=== PATIENT | male | born 1980 | race Two or more races ===

== ENCOUNTER 2016-10-19 21:23 | Emergency (ER) | payer MEDICAID, OTHER ==
[2016-10-20] MEDS ORDERED: KETOROLAC TROMETHAMINE 30 MG/ML 1 ML VIAL ONE (00:07)
[2016-10-20] MEDS ORDERED: ONDANSETRON 4 MG/2ML 2 ML VIAL ONE (00:07)
[2016-10-20 00:21] LABS: BASO % 0.4 % (0.2-1.0); EOS # 0.3 (0.0-0.5); EOS % 4.4 % (0.9-2.9); HEMATOCRIT 45.6 % (32.0-52.0); HEMOGLOBIN 15.7 gm/l (14.0-18.0); IMM NEUT% 0.3 % (0-1); LYMPH # 0.8 (1.0-4.8); LYMPH % 10.2 % (15-45); MEAN CELL VOLUME 86.4 fl (80.0-94.0); MEAN CORPUSCULAR HEMOGLOBIN 29.7 pg (27.0-31.0); MEAN CORPUSCULAR HGB CONC 34.4 g/dl (33.0-37.0); MEAN PLATELET VOLUME 9.1 fl (7.4-10.4); MONO # 0.6 (0.0-0.8); MONO % 7.3 % (4-12); NEUT % 77.4 % (43-75); PLATELET COUNT 257 K/mm3 (130-400); RED CELL DISTRIBUTION WIDTH 12.2 % (11.5-14.5)
[2016-10-20 00:47] LABS: ALB/GLOB RATIO 1.3 (>1.0); ALBUMIN 4.6 gm/dL (3.5-5.7); CALCIUM 9.7 mg/dL (8.6-10.3)
[2016-10-20 01:37] LABS: SPECIFIC GRAVITY 1.015 (1.001-1.030); URINE BILIRUBIN NEGATIVE (NEGATIVE); URINE BLOOD 1+ (NEGATIVE); URINE COLOR AMBER; URINE GLUCOSE (UA) NEGATIVE (NEGATIVE); URINE LEUKOCYTE ESTERASE NEGATIVE (NEGATIVE); URINE NITRITE NEGATIVE (NEGATIVE); URINE PROTEIN 1+ (NEGATIVE); URINE UROBILINOGEN NORMAL (0-1 mg/dl)
[2016-10-20 01:38] LABS: URINE APPEARANCE CLEAR
[2016-10-20 01:47] LABS: URINE BACTERIA 0; URINE EPITHELIAL CELLS 0-2 /hpf
== END 2016-10-20 02:27 | disposition home or self-care (01) ==
LOC: ED 21:23
DX: J11.1 Influenza due to unidentified influenza virus with other respiratory manifestations (principal); R11.2 Nausea with vomiting, unspecified